=== PATIENT | female | born 1935 | race Caucasian/White ===

== ENCOUNTER 2017-12-25 10:22 | Inpatient (IN) | payer BC ==
[2017-12-25] MEDS: ALBUTEROL 0.5% (NEB) 2.5 MG/0.5 ML AMP INH (10:59)
[2017-12-25] MEDS: IPRATROPIUM (NEB) 0.5 MG/2.5 ML AMP INH (10:59)
[2017-12-25 11:33] LABS: ADD MAN DIFF? NO
[2017-12-25 11:39] LABS: BASOPHILS % 0.4 % (0.0-2.0); HEMATOCRIT 41.8 % (37.0-47.0); HEMOGLOBIN 14.1 g/dl (12.0-16.0); LYMPHOCYTES % 12.1 % (15.0-51.0); MEAN CORPUSCULAR HEMOGLOBIN 30.1 pg (29.0-33.0); MEAN CORPUSCULAR HGB CONC 33.7 g/dl (32.0-37.0); MEAN CORPUSCULAR VOLUME 89.3 fl (82.0-101.0); MEAN PLATELET VOLUME 10.4 fl (7.4-10.4); MONOCYTE # 1.2 10^3/ul (0.3-0.9); NEUTROPHIL # 6.1 10^3/ul (1.6-7.5); PLATELET COUNT 205 10^3/UL (140-415); RED BLOOD COUNT 4.68 10^6/ul (4.20-5.40); RED CELL DISTRIBUTION WIDTH 12.7 % (11.5-14.5)
[2017-12-25 11:39] LABS: WHITE BLOOD COUNT 8.3 10^3/ul (4.8-10.8)
[2017-12-25 11:57] LABS: INR 1.07; PT RATIO 1.1
[2017-12-25] MEDS: SODIUM CHLORIDE 0.9% 1L BAG IV* (11:57)
[2017-12-25 11:58] LABS: PARTIAL THROMBOPLASTIN TIME 35.1 Sec (25.0-35.0)
[2017-12-25] MEDS: CEFTRIAXONE 1 GM/50 ML (PMX) 50 ML IVPB (11:58)
[2017-12-25] MEDS: ACETAMINOPHEN 650 MG SUPP PR (11:58)
[2017-12-25 12:00] LABS: LACTIC ACID 1.3 mmol/L (0.5-2.0)
[2017-12-25 12:01] LABS: ALANINE AMINOTRANSFERASE 42 IU/L (13-69); ALBUMIN 4.1 g/dl (3.3-4.9); ALBUMIN/GLOBULIN RATIO 1.07; ALKALINE PHOSPHATASE 88 IU/L (42-121); ANION GAP 14 (8-16); ASPARTATE AMINO TRANSFERASE 52 IU/L (15-46); BILIRUBIN,INDIRECT 0.7 mg/dl (0-1.1); BILIRUBIN,TOTAL 0.7 mg/dl (0.2-1.3); BLOOD UREA NITROGEN 12 mg/dl (7-20); CALCIUM 8.5 mg/dl (8.4-10.2); CARBON DIOXIDE 27 mmol/L (21-31); CHLORIDE 95 mmol/L (97-110); CREATININE 0.91 mg/dl (0.44-1.00); GLUCOSE 135 mg/dl (70-220); LIPASE 54 U/L (23-300); POTASSIUM 3.1 mmol/L (3.5-5.1); SODIUM 133 mmol/L (135-144); TOTAL PROTEIN 7.9 g/dl (6.1-8.1)
[2017-12-25 12:10] LABS: TROPONIN-I 0.089 ng/ml (0.000-0.120)
[2017-12-25 12:15] LABS: ADD UMIC YES; UR ASCORBIC ACID NEGATIVE (NEGATIVE); UR BILIRUBIN (Dip) NEGATIVE (NEGATIVE); UR BLOOD (Dip) 2+ mg/dL (NEGATIVE); UR CLARITY CLEAR (CLEAR); UR COLOR YELLOW (YELLOW); UR GLUCOSE (Dip) NEGATIVE (NEGATIVE); UR KETONES (Dip) NEGATIVE (NEGATIVE); UR LEUKOCYTE ESTERASE (Dip) NEGATIVE Leu/ul (NEGATIVE); UR NITRITE (Dip) NEGATIVE (NEGATIVE); UR RBC 26 /HPF (0-5); UR SPECIFIC GRAVITY (Dip) 1.011 (1.003-1.030); UR TOTAL PROTEIN (Dip) 1+ mg/dl (NEGATIVE); UR UROBILINOGEN (Dip) NEGATIVE (NEGATIVE); UR WBC 2 /HPF (0-5)
[2017-12-25] MEDS: OSELTAMIVIR 75 MG CAP PO ×2 (12:38→20:43)
[2017-12-25] MEDS: AZITHROMYCIN 500MG/NS (PMX) 250 ML IVPB (12:39)
[2017-12-25] MEDS ORDERED: ONDANSETRON 4 MG INJ IV (14:00)
[2017-12-25] MEDS ORDERED: ZOLPIDEM 5 MG TAB PO (14:00)
[2017-12-25] MEDS: DOCUSATE SODIUM 100 MG CAP PO (14:00)
[2017-12-25] MEDS ORDERED: GLUCOSE GEL 15 GRAM TUBE BUCCAL (14:30)
[2017-12-25] MEDS ORDERED: GLUCOSE GEL 15 GRAM TUBE PO ×2 (14:30)
[2017-12-25] MEDS ORDERED: DEXTROSE 50% 50 ML SYRINGE IV ×2 (14:30)
[2017-12-25] MEDS ORDERED: GLUCAGON 1 MG INJ IM (14:30)
[2017-12-25 15:01] LABS: CREATINE KINASE 494 IU/L (23-200)
[2017-12-25 15:13] LABS: CK INDEX 0.2; CK-MB 1.23 ng/ml (0.0-2.4); TROPONIN-I 0.087 ng/ml (0.000-0.120)
[2017-12-25] MEDS: POTASSIUM CHLORIDE (SR) 20 MEQ TAB PO ×2 (15:57→20:42)
[2017-12-25] MEDS: SOD CHLORIDE 0.9% 1,000 ML IV (15:58)
[2017-12-25] MEDS: INSULIN ASPART [NOVOLOG] 3 ML PEN SC ×2 (18:00→20:44)
[2017-12-25] MEDS: APIXABAN 5 MG TABLET PO (20:43)
[2017-12-25] MEDS: LEVETIRACETAM 500 MG TAB PO (20:43)
[2017-12-25] MEDS: ATORVASTATIN 10 MG TAB PO (20:43)
[2017-12-25] MEDS: METOPROLOL 25 MG TAB PO (20:44)
[2017-12-25 20:47] LABS: CREATINE KINASE 504 IU/L (23-200)
[2017-12-25 20:58] LABS: CK INDEX 0.3; CK-MB 1.57 ng/ml (0.0-2.4); TROPONIN-I 0.075 ng/ml (0.000-0.120)
[2017-12-26] MEDS: ACCU-CHEK XX (01:57)
[2017-12-26] MEDS: DOCUSATE SODIUM 100 MG CAP PO ×2 (02:00→13:36)
[2017-12-26] MEDS: ACETAMINOPHEN 325 MG TAB PO ×3 (04:45→20:14)
[2017-12-26] MEDS: LEVOTHYROXINE 125 MCG TAB PO (06:18)
[2017-12-26] MEDS: GUAIFENESIN 20 MG/ML 5ML CUP PO (06:18)
[2017-12-26 07:29] LABS: ADD MAN DIFF? NO
[2017-12-26 07:36] LABS: BASOPHILS % 0.2 % (0.0-2.0); HEMATOCRIT 38.8 % (37.0-47.0); HEMOGLOBIN 12.8 g/dl (12.0-16.0); LYMPHOCYTES % 11.7 % (15.0-51.0); MEAN CORPUSCULAR HEMOGLOBIN 30.3 pg (29.0-33.0); MEAN CORPUSCULAR VOLUME 91.7 fl (82.0-101.0); MEAN PLATELET VOLUME 10.9 fl (7.4-10.4); MONOCYTE # 0.6 10^3/ul (0.3-0.9); MONOCYTES % 7.4 % (0.0-11.0); NEUTROPHIL # 6.9 10^3/ul (1.6-7.5); NEUTROPHILS % 80.2 % (39.0-77.0); PLATELET COUNT 181 10^3/UL (140-415); RED BLOOD COUNT 4.23 10^6/ul (4.20-5.40); RED CELL DISTRIBUTION WIDTH 13.2 % (11.5-14.5)
[2017-12-26 07:36] LABS: WHITE BLOOD COUNT 8.6 10^3/ul (4.8-10.8)
[2017-12-26 07:52] LABS: INR 1.12; PROTIME 14.6 Sec (11.9-14.9); PT RATIO 1.1
[2017-12-26 07:53] LABS: PARTIAL THROMBOPLASTIN TIME 36.3 Sec (25.0-35.0)
[2017-12-26] MEDS: INSULIN ASPART [NOVOLOG] 3 ML PEN SC ×4 (07:55→20:04)
[2017-12-26 08:24] LABS: ALANINE AMINOTRANSFERASE 39 IU/L (13-69); ALBUMIN 3.4 g/dl (3.3-4.9); ALKALINE PHOSPHATASE 69 IU/L (42-121); ANION GAP 13 (8-16); ASPARTATE AMINO TRANSFERASE 57 IU/L (15-46); BILIRUBIN,INDIRECT 0.4 mg/dl (0-1.1); BILIRUBIN,TOTAL 0.4 mg/dl (0.2-1.3); BLOOD UREA NITROGEN 14 mg/dl (7-20); CALCIUM 7.9 mg/dl (8.4-10.2); CARBON DIOXIDE 24 mmol/L (21-31); CHLORIDE 102 mmol/L (97-110); CREATININE 0.79 mg/dl (0.44-1.00); GLUCOSE 134 mg/dl (70-220); MAGNESIUM 1.6 mg/dl (1.7-2.5); SODIUM 135 mmol/L (135-144); TOTAL PROTEIN 6.8 g/dl (6.1-8.1)
[2017-12-26] MEDS: OSELTAMIVIR 75 MG CAP PO (08:26)
[2017-12-26] MEDS: LEVETIRACETAM 500 MG TAB PO ×2 (08:27→20:15)
[2017-12-26] MEDS: AMLODIPINE 10 MG TAB PO (08:27)
[2017-12-26] MEDS: METOPROLOL 25 MG TAB PO ×2 (08:27→20:15)
[2017-12-26] MEDS: APIXABAN 5 MG TABLET PO ×2 (08:27→20:15)
[2017-12-26 08:49] LABS: LACTIC ACID 1.1 mmol/L (0.5-2.0)
[2017-12-26] MEDS: MAGNESIUM SULFATE 1 GM/D5W 100 ML IVPB (11:33)
[2017-12-26] MEDS: morphine 2 MG INJ IV (18:54)
[2017-12-26] MEDS: BARIUM SULF 2% 450 ML BTL (BERRY SMOOTHIE) PO (20:01)
[2017-12-26] MEDS: OSELTAMIVIR 30 MG CAP PO (20:14)
[2017-12-26] MEDS: ATORVASTATIN 10 MG TAB PO (20:15)
[2017-12-27] MEDS: ACCU-CHEK XX (02:00)
[2017-12-27] MEDS: DOCUSATE SODIUM 100 MG CAP PO ×2 (02:00→05:05)
[2017-12-27] MEDS: LEVOTHYROXINE 125 MCG TAB PO (05:05)
[2017-12-27] MEDS: ACETAMINOPHEN 325 MG TAB PO ×2 (05:06→12:53)
[2017-12-27 06:45] LABS: ADD MAN DIFF? NO
[2017-12-27 06:53] LABS: WHITE BLOOD COUNT 6.2 10^3/ul (4.8-10.8)
[2017-12-27 06:53] LABS: BASOPHILS % 0.2 % (0.0-2.0); HEMATOCRIT 37.3 % (37.0-47.0); LYMPHOCYTES # 1.9 10^3/ul (0.8-2.9); LYMPHOCYTES % 31.1 % (15.0-51.0); MEAN CORPUSCULAR HEMOGLOBIN 29.4 pg (29.0-33.0); MEAN CORPUSCULAR HGB CONC 32.2 g/dl (32.0-37.0); MEAN CORPUSCULAR VOLUME 91.4 fl (82.0-101.0); MEAN PLATELET VOLUME 11.2 fl (7.4-10.4); MONOCYTE # 0.4 10^3/ul (0.3-0.9); MONOCYTES % 6.7 % (0.0-11.0); NEUTROPHIL # 3.9 10^3/ul (1.6-7.5); NEUTROPHILS % 61.7 % (39.0-77.0); PLATELET COUNT 160 10^3/UL (140-415); RED BLOOD COUNT 4.08 10^6/ul (4.20-5.40); RED CELL DISTRIBUTION WIDTH 13.2 % (11.5-14.5)
[2017-12-27 07:17] LABS: ANION GAP 11 (8-16); BLOOD UREA NITROGEN 15 mg/dl (7-20); CARBON DIOXIDE 26 mmol/L (21-31); CHLORIDE 102 mmol/L (97-110); CREATININE 0.81 mg/dl (0.44-1.00); GLUCOSE 113 mg/dl (70-220); MAGNESIUM 2.1 mg/dl (1.7-2.5); POTASSIUM 3.7 mmol/L (3.5-5.1); SODIUM 135 mmol/L (135-144)
[2017-12-27] MEDS: INSULIN ASPART [NOVOLOG] 3 ML PEN SC ×4 (07:55→22:06)
[2017-12-27] MEDS: AMLODIPINE 10 MG TAB PO (08:30)
[2017-12-27] MEDS: APIXABAN 5 MG TABLET PO ×2 (08:30→21:52)
[2017-12-27] MEDS: OSELTAMIVIR 30 MG CAP PO ×2 (08:30→21:59)
[2017-12-27] MEDS: LEVETIRACETAM 500 MG TAB PO ×2 (08:30→21:52)
[2017-12-27] MEDS: METOPROLOL 25 MG TAB PO ×2 (08:31→21:52)
[2017-12-27] MEDS: FUROSEMIDE 40 MG INJ IV (09:46)
[2017-12-27] MEDS: CEFTRIAXONE 1 GM/50 ML (PMX) 50 ML IVPB (09:46)
[2017-12-27] MEDS: AZITHROMYCIN 500MG/NS (PMX) 250 ML IVPB (11:19)
[2017-12-27] MEDS: ALBUTEROL 0.083% (NEB) 2.5 MG/3 ML AMP HHN ×2 (14:36→21:37)
[2017-12-27] MEDS: ATORVASTATIN 10 MG TAB PO (21:52)
[2017-12-27] MEDS: morphine 2 MG INJ IV (21:59)
[2017-12-28] MEDS: ACCU-CHEK XX (02:00)
[2017-12-28] MEDS: ACETAMINOPHEN 325 MG TAB PO (04:32)
[2017-12-28] MEDS: DOCUSATE SODIUM 100 MG CAP PO ×2 (04:32→13:35)
[2017-12-28] MEDS: LEVOTHYROXINE 125 MCG TAB PO (05:37)
[2017-12-28] MEDS: INSULIN ASPART [NOVOLOG] 3 ML PEN SC ×4 (07:55→20:20)
[2017-12-28] MEDS: ALBUTEROL 0.083% (NEB) 2.5 MG/3 ML AMP HHN ×4 (08:00→20:26)
[2017-12-28] MEDS: LEVETIRACETAM 500 MG TAB PO ×2 (08:37→20:20)
[2017-12-28] MEDS: OSELTAMIVIR 30 MG CAP PO ×2 (08:37→20:19)
[2017-12-28] MEDS: METOPROLOL 25 MG TAB PO ×2 (08:38→20:19)
[2017-12-28] MEDS: FUROSEMIDE 20 MG INJ IV (08:38)
[2017-12-28] MEDS: AMLODIPINE 10 MG TAB PO (08:38)
[2017-12-28] MEDS: APIXABAN 5 MG TABLET PO ×2 (08:39→20:20)
[2017-12-28] MEDS: CEFTRIAXONE 1 GM/50 ML (PMX) 50 ML IVPB (10:48)
[2017-12-28] MEDS: AZITHROMYCIN 500MG/NS (PMX) 250 ML IVPB (11:32)
[2017-12-28] MEDS: IOHEXOL 14.3 MG(I)/ML (ADULT) BTL PO (13:35)
[2017-12-28] MEDS: morphine 2 MG INJ IV (15:36)
[2017-12-28] MEDS: GUAIFENESIN 20 MG/ML 5ML CUP PO (15:36)
[2017-12-28] MEDS: SOD CHLORIDE 0.9% 100 ML (17:24)
[2017-12-28] MEDS: IOHEXOL 300MG/ML 150 ML BTL (17:25)
[2017-12-28] MEDS: ATORVASTATIN 10 MG TAB PO (20:20)
[2017-12-29] MEDS: ACCU-CHEK XX (02:00)
[2017-12-29] MEDS: DOCUSATE SODIUM 100 MG CAP PO ×3 (05:17→14:16)
[2017-12-29] MEDS: LEVOTHYROXINE 125 MCG TAB PO (05:17)
[2017-12-29] MEDS: INSULIN ASPART [NOVOLOG] 3 ML PEN SC ×4 (07:45→21:00)
[2017-12-29] MEDS: ALBUTEROL 0.083% (NEB) 2.5 MG/3 ML AMP HHN ×2 (08:00→15:01)
[2017-12-29] MEDS: AMLODIPINE 10 MG TAB PO (08:08)
[2017-12-29] MEDS: LEVETIRACETAM 500 MG TAB PO ×2 (08:08→21:05)
[2017-12-29] MEDS: METOPROLOL 25 MG TAB PO ×2 (08:09→21:03)
[2017-12-29] MEDS: FUROSEMIDE 20 MG INJ IV (08:09)
[2017-12-29] MEDS: APIXABAN 5 MG TABLET PO ×2 (08:09→21:02)
[2017-12-29] MEDS: OSELTAMIVIR 30 MG CAP PO ×2 (08:09→21:05)
[2017-12-29] MEDS: CEFTRIAXONE 1 GM/50 ML (PMX) 50 ML IVPB (09:53)
[2017-12-29] MEDS: AZITHROMYCIN 500MG/NS (PMX) 250 ML IVPB (10:56)
[2017-12-29] MEDS: ATORVASTATIN 10 MG TAB PO (21:05)
[2017-12-30] MEDS: ACCU-CHEK XX (02:00)
[2017-12-30] MEDS: LEVOTHYROXINE 125 MCG TAB PO (06:01)
[2017-12-30] MEDS: DOCUSATE SODIUM 100 MG CAP PO (06:01)
[2017-12-30] MEDS: INSULIN ASPART [NOVOLOG] 3 ML PEN SC ×2 (07:55→11:40)
[2017-12-30] MEDS: FUROSEMIDE 20 MG INJ IV (08:31)
[2017-12-30] MEDS: LEVETIRACETAM 500 MG TAB PO (08:31)
[2017-12-30] MEDS: AMLODIPINE 10 MG TAB PO (08:32)
[2017-12-30] MEDS: OSELTAMIVIR 30 MG CAP PO (08:32)
[2017-12-30] MEDS: APIXABAN 5 MG TABLET PO (08:32)
[2017-12-30] MEDS: METOPROLOL 25 MG TAB PO (08:32)
[2017-12-30] MEDS: CEFTRIAXONE 1 GM/50 ML (PMX) 50 ML IVPB (10:40)
[2017-12-30] MEDS: AZITHROMYCIN 500MG/NS (PMX) 250 ML IVPB (11:33)
== END 2017-12-30 12:36 | disposition home or self-care (01) | DRG 872 ==
LOC: E/R 10:22 → TEL 12:42
DX: A41.9 Sepsis, unspecified organism (principal); I69.951 Hemiplegia and hemiparesis following unspecified cerebrovascular disease affecting right dominant side; I48.2 Chronic atrial fibrillation; R13.10 Dysphagia, unspecified; E11.9 Type 2 diabetes mellitus without complications; G40.909 Epilepsy, unspecified, not intractable, without status epilepticus; I10 Essential (primary) hypertension; E87.6 Hypokalemia; I34.0 Nonrheumatic mitral (valve) insufficiency; I69.991 Dysphagia following unspecified cerebrovascular disease; I69.998 Other sequelae following unspecified cerebrovascular disease; J10.1 Influenza due to other identified influenza virus with other respiratory manifestations; R09.02 Hypoxemia; M81.0 Age-related osteoporosis without current pathological fracture; Z79.4 Long term (current) use of insulin; Z79.84 Long term (current) use of oral hypoglycemic drugs; Z79.02 Long term (current) use of antithrombotics/antiplatelets
CPT/HCPCS: 36415; 71045; 74176; 74177; 80048; 80053; 81001; 82550; 82553; 82962; 83605; 83690; 83735; 84484; 85025; 85610; 85730; 86756; 87040; 87086; 87400; 93005; 93306; 94640; 94644; 94664; 96374; 96375; 99291-25

== ENCOUNTER 2018-08-18 20:36 | Inpatient (IN) | payer BC ==
[2018-08-18 22:38] LABS: ADD MAN DIFF? NO
[2018-08-18 22:41] LABS: BASOPHILS % 0.4 % (0.0-2.0); EOSINOPHILS # 0.1 10^3/ul (0.0-0.5); EOSINOPHILS % 0.7 % (0.0-7.0); HEMATOCRIT 41.2 % (37.0-47.0); HEMOGLOBIN 13.6 g/dl (12.0-16.0); LYMPHOCYTES # 2.7 10^3/ul (0.8-2.9); LYMPHOCYTES % 31.4 % (15.0-51.0); MEAN CORPUSCULAR HEMOGLOBIN 30.4 pg (29.0-33.0); MEAN CORPUSCULAR VOLUME 92.2 fl (82.0-101.0); MEAN PLATELET VOLUME 10.3 fl (7.4-10.4); MONOCYTE # 0.9 10^3/ul (0.3-0.9); MONOCYTES % 10.7 % (0.0-11.0); NEUTROPHIL # 4.8 10^3/ul (1.6-7.5); NEUTROPHILS % 56.6 % (39.0-77.0); PLATELET COUNT 245 10^3/UL (140-415); RED BLOOD COUNT 4.47 10^6/ul (4.20-5.40); RED CELL DISTRIBUTION WIDTH 13.5 % (11.5-14.5)
[2018-08-18 22:41] LABS: WHITE BLOOD COUNT 8.5 10^3/ul (4.8-10.8)
[2018-08-18 23:01] LABS: ALANINE AMINOTRANSFERASE 16 IU/L (13-69); ALBUMIN 4.6 g/dl (3.3-4.9); ALBUMIN/GLOBULIN RATIO 1.27; ALKALINE PHOSPHATASE 88 IU/L (42-121); ANION GAP 7 (5-13); ASPARTATE AMINO TRANSFERASE 26 IU/L (15-46); BILIRUBIN,INDIRECT 0.5 mg/dl (0-1.1); BILIRUBIN,TOTAL 0.5 mg/dl (0.2-1.3); BLOOD UREA NITROGEN 28 mg/dl (7-20); CALCIUM 10.1 mg/dl (8.4-10.2); CARBON DIOXIDE 26 mmol/L (21-31); CHLORIDE 104 mmol/L (97-110); CREATININE 1.21 mg/dl (0.44-1.00); GLUCOSE 106 mg/dl (70-220); POTASSIUM 4.4 mmol/L (3.5-5.1); SODIUM 137 mmol/L (135-144); TOTAL PROTEIN 8.2 g/dl (6.1-8.1)
[2018-08-18 23:11] LABS: B-TYPE NATRIURETIC PEPTIDE 1190 PG/ML (0-450); TROPONIN-I < 0.012 ng/ml (0.000-0.120)
[2018-08-19] MEDS ORDERED: NACL 0.9% 3 ML SYG IV (02:00)
[2018-08-19] MEDS ORDERED: ONDANSETRON 4 MG INJ IV (02:00)
[2018-08-19] MEDS ORDERED: DOCUSATE SODIUM 100 MG CAP PO (02:00)
[2018-08-19] MEDS ORDERED: BISACODYL (EC) 5 MG TAB PO (02:00)
[2018-08-19] MEDS: FUROSEMIDE 40 MG INJ IV (03:00)
[2018-08-19 06:16] LABS: ADD MAN DIFF? NO
[2018-08-19 06:22] LABS: WHITE BLOOD COUNT 7.4 10^3/ul (4.8-10.8)
[2018-08-19 06:22] LABS: BASOPHILS % 0.5 % (0.0-2.0); EOSINOPHILS # 0.1 10^3/ul (0.0-0.5); EOSINOPHILS % 1.1 % (0.0-7.0); HEMATOCRIT 42.2 % (37.0-47.0); HEMOGLOBIN 13.9 g/dl (12.0-16.0); LYMPHOCYTES # 2.5 10^3/ul (0.8-2.9); LYMPHOCYTES % 33.7 % (15.0-51.0); MEAN CORPUSCULAR HEMOGLOBIN 30.3 pg (29.0-33.0); MEAN CORPUSCULAR HGB CONC 32.9 g/dl (32.0-37.0); MEAN CORPUSCULAR VOLUME 91.9 fl (82.0-101.0); MONOCYTE # 0.8 10^3/ul (0.3-0.9); MONOCYTES % 10.2 % (0.0-11.0); NEUTROPHILS % 54.2 % (39.0-77.0); PLATELET COUNT 254 10^3/UL (140-415); RED BLOOD COUNT 4.59 10^6/ul (4.20-5.40); RED CELL DISTRIBUTION WIDTH 13.7 % (11.5-14.5)
[2018-08-19 06:44] LABS: CREATINE KINASE 94 IU/L (23-200)
[2018-08-19 06:53] LABS: CK-MB 0.95 ng/ml (0.0-2.4); TROPONIN-I < 0.012 ng/ml (0.000-0.120)
[2018-08-19 06:54] LABS: ALANINE AMINOTRANSFERASE 23 IU/L (13-69); ALBUMIN 4.7 g/dl (3.3-4.9); ALBUMIN/GLOBULIN RATIO 1.42; ALKALINE PHOSPHATASE 73 IU/L (42-121); ANION GAP 13 (5-13); ASPARTATE AMINO TRANSFERASE 29 IU/L (15-46); BILIRUBIN,INDIRECT 0.6 mg/dl (0-1.1); BILIRUBIN,TOTAL 0.6 mg/dl (0.2-1.3); BLOOD UREA NITROGEN 25 mg/dl (7-20); CALCIUM 9.9 mg/dl (8.4-10.2); CARBON DIOXIDE 28 mmol/L (21-31); CHLORIDE 99 mmol/L (97-110); CHOL/HDL RATIO 2.4 RATIO; CHOLESTEROL 174 mg/dl (100-200); CREATININE 1.02 mg/dl (0.44-1.00); GLUCOSE 113 mg/dl (70-220); HDL CHOLESTEROL 71 mg/dl (33-92); LDL CHOLESTEROL,CALCULATED 87 mg/dl; POTASSIUM 4.3 mmol/L (3.5-5.1); SODIUM 140 mmol/L (135-144); TRIGLYCERIDES 78 mg/dl (0-149)
[2018-08-19] MEDS: LEVOTHYROXINE 125 MCG TAB PO (06:59)
[2018-08-19 07:18] LABS: HEMOGLOBIN A1C 6.4 % (0-5.9)
[2018-08-19] MEDS: LEVETIRACETAM 500 MG TAB PO ×2 (08:09→21:29)
[2018-08-19] MEDS: AMLODIPINE 10 MG TAB PO (08:09)
[2018-08-19] MEDS: APIXABAN 5 MG TABLET PO ×2 (08:10→21:30)
[2018-08-19] MEDS: KETOCONAZOLE 2% SHAMPOO 120 ML BTL TOP (10:40)
[2018-08-19] MEDS: FUROSEMIDE 20 MG INJ IV (10:40)
[2018-08-19 12:28] LABS: CREATINE KINASE 96 IU/L (23-200)
[2018-08-19 12:40] LABS: CK-MB 0.99 ng/ml (0.0-2.4); TROPONIN-I < 0.012 ng/ml (0.000-0.120)
[2018-08-19] MEDS: ATORVASTATIN 10 MG TAB PO (21:29)
[2018-08-20] MEDS: DIPHENHYDRAMINE 25 MG CAP PO (05:09)
[2018-08-20 06:00] LABS: ADD MAN DIFF? NO
[2018-08-20 06:11] LABS: BASOPHILS % 0.6 % (0.0-2.0); EOSINOPHILS # 0.1 10^3/ul (0.0-0.5); HEMATOCRIT 39.5 % (37.0-47.0); HEMOGLOBIN 13.1 g/dl (12.0-16.0); LYMPHOCYTES # 2.8 10^3/ul (0.8-2.9); MEAN CORPUSCULAR HEMOGLOBIN 30.4 pg (29.0-33.0); MEAN CORPUSCULAR HGB CONC 33.2 g/dl (32.0-37.0); MEAN CORPUSCULAR VOLUME 91.6 fl (82.0-101.0); MEAN PLATELET VOLUME 10.9 fl (7.4-10.4); MONOCYTE # 0.8 10^3/ul (0.3-0.9); MONOCYTES % 11.8 % (0.0-11.0); NEUTROPHIL # 3.3 10^3/ul (1.6-7.5); NEUTROPHILS % 46.3 % (39.0-77.0); PLATELET COUNT 231 10^3/UL (140-415); RED BLOOD COUNT 4.31 10^6/ul (4.20-5.40); RED CELL DISTRIBUTION WIDTH 13.6 % (11.5-14.5)
[2018-08-20 06:11] LABS: WHITE BLOOD COUNT 7.1 10^3/ul (4.8-10.8)
[2018-08-20 06:45] LABS: ALANINE AMINOTRANSFERASE 20 IU/L (13-69); ALBUMIN 3.9 g/dl (3.3-4.9); ALBUMIN/GLOBULIN RATIO 1.25; ALKALINE PHOSPHATASE 67 IU/L (42-121); ANION GAP 12 (5-13); ASPARTATE AMINO TRANSFERASE 25 IU/L (15-46); BILIRUBIN,INDIRECT 0.8 mg/dl (0-1.1); BILIRUBIN,TOTAL 0.8 mg/dl (0.2-1.3); BLOOD UREA NITROGEN 26 mg/dl (7-20); CALCIUM 9.1 mg/dl (8.4-10.2); CARBON DIOXIDE 26 mmol/L (21-31); CHLORIDE 100 mmol/L (97-110); CREATININE 1.08 mg/dl (0.44-1.00); GLUCOSE 117 mg/dl (70-220); POTASSIUM 3.8 mmol/L (3.5-5.1); SODIUM 138 mmol/L (135-144)
[2018-08-20] MEDS: LEVOTHYROXINE 125 MCG TAB PO (07:05)
[2018-08-20] MEDS: LEVETIRACETAM 500 MG TAB PO (08:03)
[2018-08-20] MEDS: APIXABAN 5 MG TABLET PO (08:03)
[2018-08-20] MEDS: FUROSEMIDE 20 MG INJ IV (08:03)
[2018-08-20] MEDS: AMLODIPINE 10 MG TAB PO (09:00)
[2018-08-20] MEDS: ACETAMINOPHEN 325 MG TAB PO (11:07)
== END 2018-08-20 18:37 | disposition home or self-care (01) | DRG 291 ==
LOC: 6WM 08-19 01:42 → E/R 20:36
DX: I11.0 Hypertensive heart disease with heart failure (principal); I50.31 Acute diastolic (congestive) heart failure; I48.91 Unspecified atrial fibrillation; E03.9 Hypothyroidism, unspecified; G40.909 Epilepsy, unspecified, not intractable, without status epilepticus; L29.9 Pruritus, unspecified; M17.0 Bilateral primary osteoarthritis of knee
CPT/HCPCS: 71045; 73562; 80053; 80061; 82306; 82550; 82553; 83036; 83735; 83880; 84443; 84484; 85025; 93005; 93306; 93970; G0378

== ENCOUNTER 2018-09-11 10:08 | Inpatient (IN) | payer BC ==
[2018-09-11 12:36] LABS: ADD MAN DIFF? NO
[2018-09-11 12:42] LABS: BASOPHILS % 0.4 % (0.0-2.0); EOSINOPHILS % 0.3 % (0.0-7.0); HEMATOCRIT 37.3 % (37.0-47.0); HEMOGLOBIN 12.2 g/dl (12.0-16.0); LYMPHOCYTES # 2.1 10^3/ul (0.8-2.9); LYMPHOCYTES % 18.9 % (15.0-51.0); MEAN CORPUSCULAR HEMOGLOBIN 30.7 pg (29.0-33.0); MEAN CORPUSCULAR HGB CONC 32.7 g/dl (32.0-37.0); MEAN PLATELET VOLUME 10.9 fl (7.4-10.4); MONOCYTE # 1.1 10^3/ul (0.3-0.9); MONOCYTES % 9.6 % (0.0-11.0); NEUTROPHIL # 7.8 10^3/ul (1.6-7.5); NEUTROPHILS % 70.2 % (39.0-77.0); PLATELET COUNT 218 10^3/UL (140-415); RED BLOOD COUNT 3.97 10^6/ul (4.20-5.40); RED CELL DISTRIBUTION WIDTH 13.2 % (11.5-14.5)
[2018-09-11 12:42] LABS: WHITE BLOOD COUNT 11.1 10^3/ul (4.8-10.8)
[2018-09-11 13:01] LABS: INR 1.08; PROTIME 14.1 Sec (11.9-14.9); PT RATIO 1.1
[2018-09-11 13:03] LABS: ANION GAP 8 (5-13); BLOOD UREA NITROGEN 15 mg/dl (7-20); CALCIUM 9.1 mg/dl (8.4-10.2); CARBON DIOXIDE 25 mmol/L (21-31); CHLORIDE 106 mmol/L (97-110); CREATININE 0.95 mg/dl (0.44-1.00); GLUCOSE 119 mg/dl (70-220); SODIUM 139 mmol/L (135-144)
[2018-09-11 13:15] LABS: B-TYPE NATRIURETIC PEPTIDE 2710 PG/ML (0-450); TROPONIN-I < 0.012 ng/ml (0.000-0.120)
[2018-09-11] MEDS ORDERED: ACETAMINOPHEN 325 MG TAB PO ×2 (15:00→16:00)
[2018-09-11] MEDS ORDERED: ONDANSETRON 4 MG INJ IV ×2 (15:00→16:00)
[2018-09-11] MEDS ORDERED: DOCUSATE SODIUM 100 MG CAP PO (16:00)
[2018-09-11] MEDS ORDERED: NITROGLYCERIN (SL) 0.4 MG TAB SL (16:00)
[2018-09-11] MEDS ORDERED: ALBUTEROL/IPRATROPIUM (NEB) 3 ML AMP HHN (16:00)
[2018-09-11] MEDS ORDERED: LORAZEPAM 2 MG INJ IV (16:00)
[2018-09-11] MEDS ORDERED: hydrALAzine 20 MG INJ IV (16:00)
[2018-09-11] MEDS ORDERED: NACL 0.9% 3 ML SYG IV (16:00)
[2018-09-11] MEDS ORDERED: morphine 2 MG INJ IV (16:00)
[2018-09-11] MEDS ORDERED: MAGNESIUM HYDROXIDE 30ML CUP PO (16:00)
[2018-09-11] MEDS ORDERED: HYDROCODONE/APAP (5/325) TAB PO (16:00)
[2018-09-11] MEDS: ASPIRIN 81 MG TAB PO (16:07)
[2018-09-11] MEDS: FUROSEMIDE 40 MG INJ IV (16:07)
[2018-09-11 16:14] LABS: FREE T4 (FREE THYROXINE) 2.36 ng/dl (0.85-1.93)
[2018-09-11 17:18] LABS: THYROID STIMULATING HORMONE 0.217 MIU/L (0.465-4.680)
[2018-09-11 19:33] LABS: CREATINE KINASE 50 IU/L (23-200)
[2018-09-11 19:46] LABS: CK INDEX 1.1; CK-MB 0.55 ng/ml (0.0-2.4); TROPONIN-I < 0.012 ng/ml (0.000-0.120)
[2018-09-11] MEDS ORDERED: NON-FORMULARY/PATIENT OWN MED (Simvastatin* (Zocor*) 10 MG) PO (21:00)
[2018-09-11] MEDS ORDERED: APIXABAN 5 MG TABLET PO (21:00)
[2018-09-11] MEDS: METOPROLOL 25 MG TAB PO (23:19)
[2018-09-12 01:16] LABS: CREATINE KINASE 55 IU/L (23-200)
[2018-09-12 01:29] LABS: CK INDEX 1.1; CK-MB 0.61 ng/ml (0.0-2.4); TROPONIN-I < 0.012 ng/ml (0.000-0.120)
[2018-09-12] MEDS: LEVETIRACETAM 500 MG TAB PO ×2 (01:39→09:45)
[2018-09-12] MEDS: ATORVASTATIN 10 MG TAB PO (01:39)
[2018-09-12] MEDS: APIXABAN 5 MG TABLET PO ×2 (01:39→09:20)
[2018-09-12 05:31] LABS: ADD MAN DIFF? NO
[2018-09-12 05:34] LABS: WHITE BLOOD COUNT 11.8 10^3/ul (4.8-10.8)
[2018-09-12 05:34] LABS: BASOPHILS % 0.3 % (0.0-2.0); EOSINOPHILS # 0.1 10^3/ul (0.0-0.5); EOSINOPHILS % 0.7 % (0.0-7.0); HEMATOCRIT 41.9 % (37.0-47.0); HEMOGLOBIN 13.7 g/dl (12.0-16.0); LYMPHOCYTES # 1.9 10^3/ul (0.8-2.9); LYMPHOCYTES % 16.2 % (15.0-51.0); MEAN CORPUSCULAR HEMOGLOBIN 30.5 pg (29.0-33.0); MEAN CORPUSCULAR HGB CONC 32.7 g/dl (32.0-37.0); MEAN CORPUSCULAR VOLUME 93.3 fl (82.0-101.0); MONOCYTE # 1.1 10^3/ul (0.3-0.9); MONOCYTES % 9.2 % (0.0-11.0); NEUTROPHIL # 8.6 10^3/ul (1.6-7.5); NEUTROPHILS % 73.3 % (39.0-77.0); PLATELET COUNT 242 10^3/UL (140-415); RED BLOOD COUNT 4.49 10^6/ul (4.20-5.40); RED CELL DISTRIBUTION WIDTH 13.2 % (11.5-14.5)
[2018-09-12 05:52] LABS: CHOL/HDL RATIO 2.8 RATIO; HDL CHOLESTEROL 53 mg/dl (33-92); LDL CHOLESTEROL,CALCULATED 81 mg/dl; TRIGLYCERIDES 94 mg/dl (0-149)
[2018-09-12 05:52] LABS: CHOLESTEROL 153 mg/dl (100-200)
[2018-09-12 05:53] LABS: ANION GAP 10 (5-13); BLOOD UREA NITROGEN 17 mg/dl (7-20); CALCIUM 9.4 mg/dl (8.4-10.2); CARBON DIOXIDE 27 mmol/L (21-31); CHLORIDE 103 mmol/L (97-110); CREATININE 0.96 mg/dl (0.44-1.00); GLUCOSE 129 mg/dl (70-220); MAGNESIUM 1.9 mg/dl (1.7-2.5); PHOSPHORUS 3.6 mg/dl (2.5-4.9); POTASSIUM 4.2 mmol/L (3.5-5.1); SODIUM 140 mmol/L (135-144)
[2018-09-12] MEDS: PANTOPRAZOLE (EC) 40 MG TAB PO (06:00)
[2018-09-12 06:22] LABS: THYROID STIMULATING HORMONE 0.328 MIU/L (0.465-4.680)
[2018-09-12] MEDS: LEVOTHYROXINE 150 MCG TAB PO (07:00)
[2018-09-12 07:56] LABS: HEMOGLOBIN A1C 6.5 % (0-5.9)
[2018-09-12] MEDS: KETOCONAZOLE 2% SHAMPOO 120 ML BTL TOP (09:00)
[2018-09-12] MEDS ORDERED: ASPIRIN (EC) 81 MG TAB PO (09:00)
[2018-09-12] MEDS ORDERED: FUROSEMIDE 40 MG INJ IV (09:00)
[2018-09-12] MEDS: CALCIUM/VITAMIN D (500/200) TAB PO (09:00)
[2018-09-12] MEDS ORDERED: ASPIRIN (EC) 325 MG TAB PO (09:00)
[2018-09-12] MEDS: METOPROLOL 25 MG TAB PO (09:15)
[2018-09-12] MEDS: FUROSEMIDE 40 MG INJ IV (09:20)
[2018-09-12] MEDS: LOSARTAN 25 MG TAB PO (09:25)
[2018-09-13] MEDS ORDERED: FUROSEMIDE 40 MG TAB PO (09:00)
== END 2018-09-12 17:09 | disposition home or self-care (01) | DRG 293 ==
LOC: 6WM 09-12 14:23 → E/R 10:08 → MS3 15:01
PROVIDERS: Hospitalist
DX: I11.0 Hypertensive heart disease with heart failure (principal); I50.33 Acute on chronic diastolic (congestive) heart failure; R07.9 Chest pain, unspecified; E03.9 Hypothyroidism, unspecified; I48.91 Unspecified atrial fibrillation
CPT/HCPCS: 71045; 80048; 80061; 82550; 82553; 83036; 83735; 83880; 84100; 84439; 84443; 84484; 85025; 85610; 92610; 93005; 97162; 99285-25